=== PATIENT | female | born 1980 | race Hispanic/Latino ===

== ENCOUNTER 2018-09-30 07:25 | Outpatient (CLI) | payer BC ==
--- NOTE | 2018-09-30 08:36 | ULT ---
ULTRASOUND GALLBLADDER RIGHT UPPER QUADRANT: Date: 09/30/18 HISTORY: Abdominal pain. COMPARISON: None. FINDINGS: Real-time Aburto scale and color evaluation of the right upper quadrant of the abdomen performed. Pancr eas unremarkable. Liver measures 18.0 cm in length. IVC is unremarkable. Portal vein patent with ante grade flow. Gallbladder is normal. Common bile duct measures 4.0 mm, normal. No cholelithiasis. Right kidney measures 11.4 cm in length. No renal mass, hydronephrosis, or abnormal calcifications. IMPRESSION: Normal exam. POS: [facility]
--- NOTE | 2018-09-30 08:57 | MRI ---
MRI LUMBAR SPINE: DATE: 09/30/2018. PROVIDED CLINICAL HISTORY: Lumbar radiculopathy. FINDINGS: Five lumbar vertebral bodies are assumed. Lumbar alignment appears normal. Vertebral body heights a ppear preserved. No focal concerning regional marrow signal abnormality is evident. 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 The conus medullaris is normal in signal and terminates at an appropriate level . The visualized extraspinal soft tissues appear unremarkable. 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 There is o significant central canal or foraminal narro wing apparent. At L2-3, there is bilateral facet arthritis. There is no significant central canal or foraminal narr owing apparent. At L3-4, there is bilateral facet arthritis. There is no significant central canal or foraminal narr owing apparent. At L4-5, there is bilateral facet arthritis. There is no significant central canal stenosis apparent . There is mild bilateral foraminal narrowing. At L5-S1, there is bilateral facet arthritis. There is no significant central canal or foraminal eric rowing apparent. IMPRESSION: Multilevel lumbar spine facet degenerative changes without significant central canal or foraminal eric rowing apparent. POS: [facility]
== END 2018-09-30 07:26 | disposition home or self-care (01) ==
LOC: SCSULT 07:25
PROVIDERS: ATTEND Family Medicine
DX: M47.26 Other spondylosis with radiculopathy, lumbar region (principal); R10.811 Right upper quadrant abdominal tenderness
CPT/HCPCS: 72148; 76705